=== PATIENT | male | born 1985 | race Caucasian/White ===

== ENCOUNTER 2016-12-30 18:50 | Emergency (ER) ==
[2016-12-30 19:01] VITALS: BP 134/93; TEMP 98.1; BMI 32.8
--- NOTE | 2016-12-30 20:11 | ED.PDOC ---
General ED Provider: Dr. 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 Time Seen by Physician: 20:07 Mode of Arrival: Walk-In Information Source: Patient Exam Limitations: No limitations Primary Care Provider: IGNACIO ARRINGTON Nursing and Triage Documentation Reviewed and Agree: Yes Review of Systems - Review Of Systems Constitutional: Reports: No symptoms Skin: Reports: Lesions, Lumps All Other Systems: Reviewed and Negative Past Medical History - Past Medical History Previously Healthy: Yes Endocrine: Reports: None Cardiovascular: Reports: None Respiratory: Reports: None Hematological: Reports: None Gastrointestinal: Reports: None Genitourinary: Reports: None Neuro/Psych: Reports: Bipolar Disorder, Other (add) Musculoskeletal: Reports: None Cancer: Reports: None - Surgical History General Surgical History: Reports: Unknown - Family History Family History: Reports: Unknown - Social History Smoking Status: Vaping Hx Substance Use: No Alcohol Screening: Occasionally - Immunizations Tetanus Shot up to Date: No Physical Exam - Physical Exam Appearance: Ill-appearing, Well-nourished Ill-appearing: Mild Pain Distress: Mild Eyes: TRUDY, EOMI, Conjunctiva clear ENT: Ears normal, Nose normal, Oropharynx normal Respiratory: Airway patent, Breath sounds clear, Breath sounds equal, Respirations nonlabored Cardiovascular: RRR, Pulses normal, No rub, No murmur GI/: Soft, Nontender, No masses, Bowel sounds normal, No Organomegaly Musculoskeletal: Normal strength, ROM intact, No edema, No calf tenderness Neurological: Sensation intact, Motor intact, Reflexes intact, Cranial nerves intact, Alert, Oriented Psychiatric: Anxious Procedures - Incision and Drainage Site: Left armpit Instrument Used: 11 Blade I & D Procedure: Yes: Betadine Prep, Hibiclens Prep Lidocaine Used: Yes (4% ) Type of Drainage: Present: Blood Irrigated: No Progress: Tolerated well Critical Care Note - Critical Care Note Total Time (mins): 0 Course - Course Orders, Labs, Meds: Orders Category Date Time Status CULTURE WOUND [WOUND CULTURE] Stat LAB 12/30/16 20:02 Results Lidocaine HCl/Pf [Lidocaine 1 % Amp 5 ml (Sutures)] MEDS 12/30/16 19:35 Discontinued 5 ml SQ ONCE STA Lidocaine HCl/Pf [Lidocaine HCl 4% 5 ml Amp] MEDS 12/30/16 20:18 Discontinued 1 ml INJ ONCE STA Medications Discontinued Medications Generic Name Dose Route Start Last Admin Trade Name Cyndee PRN Reason Stop Dose Admin Lidocaine HCl 5 ml 12/30/16 19:35 12/30/16 20:15 Lidocaine 1 % Amp 5 Ml (Sutures) SQ 12/30/16 19:36 Not Given ONCE STA Lidocaine HCl 1 ml 12/30/16 20:18 12/30/16 20:20 Lidocaine Hcl 4% 5 Ml Amp INJ 12/30/16 20:19 1 ml ONCE STA Administration Vital Signs: Temp Pulse Resp BP Pulse Ox 12/30/16 18:51 98.1 F 101 H 16 134/93 H 97 Departure - Departure Time of Disposition: 20:07 Disposition: HOME SELF-CARE Discharge Problem: Abscess Instructions: Abscess (ED) Condition: Fair Pt referred to PMD for follow-up: Yes Additional Instructions: Take antibiotics as prescribed Take pain medications as needed Follow up with PCP in 3 days Prescriptions: Clindamycin HCl [Cleocin] 150 mg PO Q6HR #30 cap Hydrocodone Bit/Acetaminophen [[place] 7.5-325] 1 each PO Q6HR #14 tablet Ibuprofen [Motrin] 600 mg PO Q6H PRN #30 tablet PRN Reason: Analgesia Allergies/Adverse Reactions: Allergies sulfamethoxazole [From Bactrim] Adverse Reaction (Verified 12/30/16 18:58) trimethoprim [From Bactrim] Adverse Reaction (Verified 12/30/16 18:58) Home Medications: Ambulatory Orders Lamotrigine [Lamictal] 200 mg PO DAILY 04/18/16 Lisdexamfetamine Dimesylate [Vyvanse] 60 mg PO DAILY 08/03/16 Hydrocodone/Acetaminophen [[place] 5-325 Tablet] 1 each PO DIRECTED PRN Clindamycin HCl [Cleocin] 150 mg PO Q6HR #30 cap 12/30/16 Cyclobenzaprine HCl [Flexeril] 5 mg PO TID 12/30/16 Gabapentin 100 mg PO BID 12/30/16 Gabapentin 300 mg PO DAILY 12/30/16 Hydrocodone Bit/Acetaminophen [[place] 7.5-325] 1 each PO Q6HR #14 tablet Ibuprofen [Motrin] 600 mg PO Q6H PRN #30 tablet 12/30/16 Disposition Discussed With: Patient, Family
[2016-12-30] MEDS: LIDOCAINE 1 % AMP 5 ML (SUTURES) SQ STA (20:15)
[2016-12-30] MEDS: LIDOCAINE HCL 4% 5 ML AMP INJ STA (20:20)
== END 2016-12-30 20:30 | disposition home or self-care (01) ==
LOC: ED 18:50
DX: L02.412 Cutaneous abscess of left axilla (principal)
CPT/HCPCS: 87070; 96372; 99283

== ENCOUNTER 2017-01-28 17:50 | Emergency (ER) ==
[2017-01-28 17:55] VITALS: BP 125/84; TEMP 100; BMI 33.6
--- NOTE | 2017-01-28 18:15 | ED.PDOC ---
General ED Provider: Dr. CHARMAINE AYALA Chief Complaint: Sore Throat Stated Complaint: sore throat , body aches Time Seen by Physician: 18:00 Mode of Arrival: Walk-In Information Source: Patient Exam Limitations: No limitations Primary Care Provider: IGNACIO ARRINGTON Nursing and Triage Documentation Reviewed and Agree: Yes EENT Complaint Exam - Throat Complaint/Exam Symptoms Are: Still present Timimg: Constant Initial Severity: Moderate Current Severity: Moderate Aggravating: Reports: None Alleviating: Reports: None Associated Signs and Symptoms: Reports: Cough. Denies: Fever, Dysphagia, Drooling, Foreign body sensation, Chills, Wheezing, Hoarseness, Sinus discomfort , Nasal congestion, Difficulty breathing, Lethargy, Irritability, Decreased activity, Vomiting, Diarrhea, Decreased hearing, Ear drainage Related History: Reports: Similar Episode Uvula Midline: Yes Rachell-tonsillar Fluctuence: No Scarlatinaform Rash Present: No Stridor Present: No Sinus Tenderness Present: No Tonsillar Hypertrophy Present: No Tonsillar Exudate Present: Yes Rachell-tonsillar Swelling Present: No Adenopathy Present: No Splenomegaly Present: No Review of Systems - Review Of Systems Constitutional: Reports: No symptoms Eyes: Reports: No symptoms Ears, Nose, Mouth, Throat: Reports: Throat pain Respiratory: Reports: No symptoms Cardiac: Reports: No symptoms GI: Reports: No symptoms : Reports: No symptoms Musculoskeletal: Reports: No symptoms Skin: Reports: No symptoms Neurological: Reports: No symptoms Endocrine: Reports: No symptoms Hematologic/Lymphatic: Reports: No symptoms All Other Systems: Reviewed and Negative Past Medical History - Past Medical History Previously Healthy: Yes Endocrine: Reports: None Cardiovascular: Reports: None Respiratory: Reports: None Hematological: Reports: None Gastrointestinal: Reports: None Genitourinary: Reports: None Neuro/Psych: Reports: Bipolar Disorder, Other (add) Musculoskeletal: Reports: None Cancer: Reports: None - Surgical History General Surgical History: Reports: Unknown - Family History Family History: Reports: Unknown - Social History Smoking Status: Never smoker Hx Substance Use: No Alcohol Screening: None - Immunizations Tetanus Shot up to Date: Yes Physical Exam - Physical Exam Appearance: Well-appearing, No pain distress, Well-nourished Eyes: TRUDY, EOMI, Conjunctiva clear ENT: Erythema, Exudate Respiratory: Airway patent, Breath sounds clear, Breath sounds equal, Respirations nonlabored Cardiovascular: RRR, Pulses normal, No rub, No murmur GI/: Soft, Nontender, No masses, Bowel sounds normal, No Organomegaly Musculoskeletal: Normal strength, ROM intact, No edema, No calf tenderness Skin: Warm, Dry, Normal color Neurological: Sensation intact, Motor intact, Reflexes intact, Cranial nerves intact, Alert, Oriented Psychiatric: Affect appropriate, Mood appropriate Critical Care Note - Critical Care Note Total Time (mins): 0 Course - Course Orders, Labs, Meds: Orders Category Date Time Status RAPID FLU A/B Stat LAB 01/28/17 18:00 Ordered RAPID STREP SCREEN [STREP SCREEN] Stat LAB 01/28/17 18:00 Ordered Vital Signs: Temp Pulse Resp BP Pulse Ox 01/28/17 17:51 100 F H 92 H 24 125/84 98 Departure - Departure Time of Disposition: 18:15 Disposition: HOME SELF-CARE Discharge Problem: Sore throat symptom Instructions: Viral Syndrome (ED), Pharyngitis (ED) Condition: Good Pt referred to PMD for follow-up: No Additional Instructions: Please call your Family Physician as soon as possible to schedule a follow-up appointment. Allergies/Adverse Reactions: Allergies sulfamethoxazole [From Bactrim] Adverse Reaction (Verified 12/30/16 18:58) trimethoprim [From Bactrim] Adverse Reaction (Verified 12/30/16 18:58) Home Medications: Ambulatory Orders Lamotrigine [Lamictal] 200 mg PO DAILY 04/18/16 Lisdexamfetamine Dimesylate [Vyvanse] 60 mg PO DAILY 08/03/16 Hydrocodone/Acetaminophen [[place] 5-325 Tablet] 1 each PO DIRECTED PRN Clindamycin HCl [Cleocin] 150 mg PO Q6HR #30 cap 12/30/16 Cyclobenzaprine HCl [Flexeril] 5 mg PO TID 12/30/16 Gabapentin 100 mg PO BID 12/30/16 Gabapentin 300 mg PO DAILY 12/30/16 Hydrocodone Bit/Acetaminophen [[place] 7.5-325] 1 each PO Q6HR #14 tablet Ibuprofen [Motrin] 600 mg PO Q6H PRN #30 tablet 12/30/16
[2017-01-28 18:42] LABS: FLU INTERNAL QC INTERNAL QC VALID; RAPID FLU A NEGATIVE (NEGATIVE); RAPID FLU B NEGATIVE (NEGATIVE)
== END 2017-01-28 18:32 | disposition home or self-care (01) ==
LOC: ED 17:50
DX: J02.9 Acute pharyngitis, unspecified (principal)
CPT/HCPCS: 87651; 87804; 87880; 99283

== ENCOUNTER 2017-02-15 12:34 | Outpatient (CLI) ==
--- NOTE | 2017-02-15 12:58 | DI ---
EXAM: Lumbar spine three view HISTORY: Low back pain, post coflex COMPARISON: CT 08/22/2016 TECHNIQUE: Three views lumbar spine were performed FINDINGS: Sacroiliac joints intact. Sacral arcuate lines intact. Vertebral bodies normal height. No fracture. Patient status post Coflex L5-S1. Mild intervertebral disc space narrowing L5-S1. M ultilevel facet arthrosis. IMPRESSION: Status postCoflex L5-L1. Mild degenerative changes.
--- NOTE | 2017-02-16 11:06 | RS.OPPTDN ---
Subjective Date of Note: 02/16/17 Visit #: 4 Date of Evaluation: 02/08/17 Payer Source: Medicaid Treatment Diagnosis: LBP, LE weakness Current Subjective/complaints:: Patient reports increased soreness in lowback and LE after increasing exercise last session. States he feels like he progressing. Pain Assessment - Pain Description Pain Location: low back, buttock, and thighs (left LE worse than right) Current Pain Intensity: 6-7/10 today Interventions - Exercise/Activities/Manual Therapy Exercises/Activities: [id number] Reviewed HEP, dx, body mechanics, and safety precautions. Assisted with hamstring and SKTC stretching. Pelvic tilts and isometric hip adduction. Increased to 4# to each ankle for alt hip flexion, 3s/ 10reps. Increased to green theraband for hip abd in hook-lying, 2s/10reps each. Isometric hip flexion 4s/5reps each. SLR no assist today, 4s/5reps each. Began green theraband for ham curls and resistive ankle df. Ended with additional LE stretching. Witheld cable pulleys and leg press today. Total minutes of Exercise: 40mins Manual Therapy: NA HOME EXERCISE PROGRAM: Pelvic tilt, heel slides, alt hip flexion, isometric hip add and flexion. Yellow theraband hip abd in hook-lying. Red theraband for scap retraction for postural strengthening. - Charges Total Direct Minutes: 40mins Total Treatment Time: 40mins Procedures billed for this date of service:: EX3 Assessment: Patient with some increased soreness but is able to progress LE and trunk strengthening exercises today. Patient Education: Home Exercise Program, Home Safety, Activity Modification Patient demonstrates compliance with HEP?: Yes Short Term Goals Goal #1: Patient independent and compliant with HEP. Goal to be met by: 02/23/17 Progress towards Goal:: Progressing Goal #2: Bilateral hip strength 4+/5. Goal to be met by: 02/23/17 Progress towards Goal:: Progressing Goal #3: Pt to report pain in low back and LE's <5/10. Goal to be met by: 02/23/17 Progress towards Goal:: Progressing Goal #4: Bilateral SLR to 45 degrees. Goal to be met by: 02/23/17 Progress towards Goal:: Progressing [facility] Goals Goal #1: Pt knows HEP and to continue ex's to maintain functional level at discharge Goal to be met by: 03/21/17 Goal #2: Score on Oswestry LBP scale improved to 24. Goal to be met by: 03/21/17 Goal #3: Pt to demonstrate good awareness of back safety and proper body mechanics. Goal to be met by: 03/21/17 Goal #4: Pt able to perform all ADL's and functional activities with minimal pain. Goal to be met by: 03/21/17 Plan PLAN OF CARE EXPIRES ON:: 03/21/17 ORDER # VISITS AND/OR THROUGH DATE: 03/21/17 PLAN: Continue Plan of Care
== END 2017-02-15 12:35 | disposition home or self-care (01) ==
LOC: RAD 12:34
PROVIDERS: ATTEND Orthopaedic Surgery
DX: M54.5 Low back pain (principal); Z98.890 Other specified postprocedural states

== ENCOUNTER 2017-02-18 10:00 | Outpatient (RCR) ==
--- NOTE | 2017-02-09 11:50 | RS.OPPTEV2 ---
Date of Note: 02/08/17 Visit #: 1 Date of Evaluation: 02/08/17 Payer Source: Medicaid Surgery Performed?: Yes Procedure Performed: Lumbar discectomy Date of Procedure: 01/18/17 Treatment Diagnosis: LBP, LE weakness History of Condition/Mechanism of Injury:: Patient reports problems with his low back since 2003. States he had received 24 injections to the low back for pain management. States he is very glad that he found a surgeon who went ahead and performed surgery rather than keep him on pain medications. Prior Level of Function.....Patient was independent with: ADL's, Self Care, Work /Vocation, Caregiving, Ambulation/Mobility, Community Integration/Access Functional Limitations: Sleep, Self Care, ADL's, Reaching, Pushing, Pulling, Lifting, Carrying, Sitting, Standing, Bending, Squatting, Ambulation, Community Access/Integration Current Subjective/complaints:: Patient reports back pain is less since surgery , but he continues to have pain into the thighs and buttocks. Reports more pain into the left thigh, compared to the right. States he has no pain passed the knees. Denies any tingling or numbness. States he has a back support that he wears daily. States he did not wear it to the evaluation because he thought he would be moving around a lot. States he is on a 10 lb. lifting restriction. States he wakes up often due to back and LE discomfort. 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 States sitting bothers him when he sits too long. States he scoots his hips out and sticks out his left leg in a chair to get relief. Medical History Medical History Comments:: ADHD Surgical History Comments:: Lumbar discectomy 01/18/17 Hx Home Medications: [place], gabepentin, flexeril, meloxicam,Vyvanse,lamictal Patient's Goals: His goal is to get relief of pain and return to his prior level of function. Pain Assessment - Pain Description Pain Location: low back, buttock, and thighs (left LE worse than right) Pain Description: Aching Current Pain Intensity: 7/10 Worst Pain Intensity: 10/10 Functional Outcome Measure Oswestry LBP: 54 - G Codes & Severity Modifier G Codes & Modifier: NA Source of G Code score: NA Observation - Observation Inspection: Patient demonstrates a clean, well-healing incision over the lower lumbar spine. Posture: Forward Head, Rounded Shoulders Gait - Gait Pattern Gait Comments: Patient ambulates independently without an assistive device, and without an antalgic gait. He demonstrates consistent foot clearance and symmetrical stride length. - ROM Comments: Lumbar AROM not assessed today due to proximity of surgery date. Bilateral LE AROM is WFL's. - Strength Trunk Rotation: 4- Good- Comments: Hip strength: right 4 to 4+/5, left 4-/5. Knee strength: bilaterally 4/5. Ankle strength: bilaterally 4+/5. Palpation Comments:: Patient reports minimal to no tenderness along the lumbar paraspinals. Demonstrates moderate muscle tone along the lumbar parapspinals. Sensation - Sensation Right Lower Extremity: Intact/Normal Left Lower Extremity: Intact/Normal Additional Comments: Additional Comments: Attempt to assess HS flexibility, patient unable to tolerate SLR on either leg past 30 degrees due to reports of back pain. Interventions - Exercise/Activities/Manual Therapy Exercises/Activities: Patient instructed in HEP of heel slides, pelvic tilts, and isometric hip adduction. Patient on treadmill to determine his tolerance for walking. Patient turns treadmill up to 3.0 mph then starts performing extreme hip flexion. "States people tell me I drag my feet, so I do this to practice picking up my feet". Explained to patient that it was not necessary for him to walk at that speed or in that manner, but he continued to do so. Patient supported himself with his UE's on treadmill while taking large steps and continuing to perform excessive hip flexion. Manual Therapy: NA - Charges Total Direct Minutes: 48 mins Total Treatment Time: 48 mins Procedures billed for this date of service:: EVAL medium X 3 Assessment Assessment: Patient presents 3 weeks s/p lumbar discectomy. He reports continued back, buttock, and lateral thigh pain. Also exhibits weakness in both LE's and trunk. He is quick to voluntarily demonstrate movements and positions during the evaluation, including the behavior he exhibited on the treadmill, even after verbal cues were given for safety. He demonstrates a great need for education for safety to prevent injury and to properly perform exercises. He demonstrates potential to benefit from modalities, stretching, strengthening, and back safety education to decrease his symptoms and improve his functional ability. Patient Education: Education of diagnosis, Body/Joint mechanics, Home Exercise Program, Activity Modification, Education of Plan of Care Rehab Potential: Good Short Term Goals Goal #1: Patient independent and compliant with HEP. Goal to be met by: 02/23/17 Goal #2: Bilateral hip strength 4+/5. Goal to be met by: 02/23/17 Goal #3: Pt to report pain in low back and LE's <5/10. Goal to be met by: 02/23/17 Goal #4: Bilateral SLR to 45 degrees. Goal to be met by: 02/23/17 Snf Goals Goal #1: Pt knows HEP and to continue ex's to maintain functional level at discharge Goal to be met by: 03/21/17 Goal #2: Score on Oswestry LBP scale improved to 24. Goal to be met by: 03/21/17 Goal #3: Pt to demonstrate good awareness of back safety and proper body mechanics. Goal to be met by: 03/21/17 Goal #4: Pt able to perform all ADL's and functional activities with minimal pain. Goal to be met by: 03/21/17 Plan - Treatment to be Provided Procedures: Therapeutic Exercises, Therapeutic Activity, Neuromuscular Rehab, Patient Education (Back Safety) Modalities: Electrical Stimulation, Ultrasound/Phonophoresis, Cryotherapy, Hot Packs - Treatment Plan Frequency: 3 X week Duration: 4 weeks ORDER # VISITS AND/OR THROUGH DATE: 03/21/17 - Treatment Code (1) Low back pain Qualifiers: Chronicity: acute Back pain laterality: bilateral Sciatica presence : unspecified whether sciatica present Qualified Description: Acute bilateral low back pain, with sciatica presence unspecified Qualifier Code (s): (M54.5) Low back pain (2) Low back pain radiating to both legs Comments: M54.5 (3) Muscle weakness Comments: LE and trunk weakness M62.81 (4) S/P lumbar discectomy Comments: Z98.890
--- NOTE | 2017-02-10 12:07 | RS.OPPTDN ---
Subjective Date of Note: 02/10/17 Visit #: 2 Date of Evaluation: 02/08/17 Payer Source: Medicaid Treatment Diagnosis: LBP, LE weakness Current Subjective/complaints:: Patient reports pain is mainly in the lumbar spine today. Denies buttock, lateral hip, or LE pain today. Reports he feels well following exercise with no increase in pain rating. Pain Assessment - Pain Description Pain Location: low back, buttock, and thighs (left LE worse than right) Pain Description: Aching Current Pain Intensity: 6/10 prior to and following EX Interventions - Exercise/Activities/Manual Therapy Exercises/Activities: [id number] Discussed current HEP, dx, body mechanics, and safety precautions. ssisted with hamstring and SKTC stretching. Pelvic tilts, heel slides, and isometric hip adduction. Alt hip flexion and yellow theraband for hip abd in hook-lying, 2s/10reps each. Isometric hip flexion 4s/5reps each. Assisted with SLR, 2s/5reps each. Patient on treadmill 2.5mph x2mins, v.c. to hold handrails for safety. In standing, cable pulleys 10# for scapular retraction 2s/10reps for postural strengthening. Red theraband for scapular retraction, 2s/10reps. Reviewed HEP and patient given copies and therabands. Total minutes of Exercise: 40mins Manual Therapy: NA HOME EXERCISE PROGRAM: Pelvic tilt, heel slides, alt hip flexion, isometric hip add and flexion. Yellow theraband hip abd in hook-lying. Red theraband for scap retraction for postural strengthening. - Charges Total Direct Minutes: 40mins Total Treatment Time: 45mins Procedures billed for this date of service:: EX3 Assessment: Patient responded well to exercise and appears motivated to progress. Patient Education: Education of diagnosis, Body/Joint mechanics, Home Exercise Program, Home Safety, Activity Modification Patient demonstrates compliance with HEP?: Yes Short Term Goals Goal #1: Patient independent and compliant with HEP. Goal to be met by: 02/23/17 Progress towards Goal:: Progressing Goal #2: Bilateral hip strength 4+/5. Goal to be met by: 02/23/17 Goal #3: Pt to report pain in low back and LE's <5/10. Goal to be met by: 02/23/17 Progress towards Goal:: Progressing Goal #4: Bilateral SLR to 45 degrees. 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 Goal to be met by: 03/21/17 Goal #3: Pt to demonstrate good awareness of back safety and proper body mechanics. Goal to be met by: 03/21/17 Goal #4: Pt able to perform all ADL's and functional activities with minimal pain. Goal to be met by: 03/21/17 Plan PLAN OF CARE EXPIRES ON:: 03/21/17 ORDER # VISITS AND/OR THROUGH DATE: 03/21/17 PLAN: Continue Plan of Care (Progress with flexibility and stability exercise to reduce pain and increase functional activity level.)
--- NOTE | 2017-02-14 11:07 | RS.OPPTDN ---
Subjective Date of Note: 02/14/17 Visit #: 3 Date of Evaluation: 02/08/17 Payer Source: Medicaid Treatment Diagnosis: LBP, LE weakness Current Subjective/complaints:: Patient reports some increased muscle soreness in the buttocks, but no increase in back pain. States he has some increased pain in the right foot since using a yoga belt for stretching hamstrings. Pain Assessment - Pain Description Pain Location: low back, buttock, and thighs (left LE worse than right) Pain Description: Aching Current Pain Intensity: 6/10 prior to and following EX Interventions - Exercise/Activities/Manual Therapy Exercises/Activities: [id number] Discussed current HEP, dx, body mechanics, and safety precautions. Assisted with hamstring and SKTC stretching. Pelvic tilts, heel slides, and isometric hip adduction. Added 3# to each ankle for alt hip flexion, 2s/10reps. Increased to red theraband for hip abd in hook-lying, 2s/ 10reps each. Isometric hip flexion 4s/5reps each. Assisted with SLR, 2s/10reps each. Started on elliptical slow to mod pace 2mins. In standing, cable pulleys 20# for scapular retraction 4s/10reps for postural strengthening. Began leg press at 105# 2s/15reps and 1s/15reps at 150#, with lumbar spine supported. Total minutes of Exercise: 45mins Manual Therapy: NA HOME EXERCISE PROGRAM: Pelvic tilt, heel slides, alt hip flexion, isometric hip add and flexion. Yellow theraband hip abd in hook-lying. Red theraband for scap retraction for postural strengthening. - Charges Total Direct Minutes: 45mins Total Treatment Time: 45mins Procedures billed for this date of service:: EX3 Assessment: Patient progressing with strengtheing exericse. Patient Education: Body/Joint mechanics, Home Exercise Program Patient demonstrates compliance with HEP?: Yes Short Term Goals Goal #1: Patient independent and compliant with HEP. Goal to be met by: 02/23/17 Progress towards Goal:: Progressing Goal #2: Bilateral hip strength 4+/5. Goal to be met by: 02/23/17 Progress towards Goal:: Progressing Goal #3: Pt to report pain in low back and LE's <5/10. Goal to be met by: 02/23/17 Progress towards Goal:: Progressing Goal #4: Bilateral SLR to 45 degrees. 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 Goal to be met by: 03/21/17 Goal #3: Pt to demonstrate good awareness of back safety and proper body mechanics. Goal to be met by: 03/21/17 Goal #4: Pt able to perform all ADL's and functional activities with minimal pain. Goal to be met by: 03/21/17 Plan PLAN OF CARE EXPIRES ON:: 03/21/17 ORDER # VISITS AND/OR THROUGH DATE: 03/21/17 PLAN: Continue Plan of Care
--- NOTE | 2017-02-18 10:56 | RS.OPPTDN ---
Subjective Date of Note: 02/16/17 Visit #: 4 Date of Evaluation: 02/08/17 Payer Source: Medicaid Treatment Diagnosis: LBP, LE weakness Current Subjective/complaints:: Patient reports soreness lowback, but no pain in LE's. States he is working on HEP. Pain Assessment - Pain Description Pain Location: low back, buttock, and thighs (left LE worse than right) Pain Description: Aching Current Pain Intensity: 6/10 today Interventions - Exercise/Activities/Manual Therapy Exercises/Activities: [id number] Reviewed HEP, dx, body mechanics, and safety precautions. Assisted with hamstring and SKTC stretching. Pelvic tilts and isometric hip adduction. Increased to 4# to each ankle for alt hip flexion, 3s/ 10reps. Increased to green theraband for hip abd in hook-lying, 2s/10reps each. Isometric hip flexion 4s/5reps each. SLR no assist today, 4s/5reps each. Began green theraband for ham curls and resistive ankle df. Ended with additional LE stretching. Witheld cable pulleys and leg press today. Total minutes of Exercise: 40mins Manual Therapy: NA HOME EXERCISE PROGRAM: Pelvic tilt, heel slides, alt hip flexion, isometric hip add and flexion. Yellow theraband hip abd in hook-lying. Red theraband for scap retraction for postural strengthening. - Charges Total Direct Minutes: 40mins Total Treatment Time: 45mins Procedures billed for this date of service:: EX3 Assessment: Patient progressing with strengthening. Patient Education: Body/Joint mechanics, Home Exercise Program Patient demonstrates compliance with HEP?: Yes Short Term Goals Goal #1: Patient independent and compliant with HEP. Goal to be met by: 02/23/17 Progress towards Goal:: Progressing Goal #2: Bilateral hip strength 4+/5. Goal to be met by: 02/23/17 Progress towards Goal:: Progressing Goal #3: Pt to report pain in low back and LE's <5/10. Goal to be met by: 02/23/17 Progress towards Goal:: Progressing Goal #4: Bilateral SLR to 45 degrees. Goal to be met by: 02/23/17 Progress towards Goal:: Progressing [facility] Goals Goal #1: Pt knows HEP and to continue ex's to maintain functional level at discharge Goal to be met by: 03/21/17 Goal #2: Score on Oswestry LBP scale improved to 24. Goal to be met by: 03/21/17 Goal #3: Pt to demonstrate good awareness of back safety and proper body mechanics. Goal to be met by: 03/21/17 Goal #4: Pt able to perform all ADL's and functional activities with minimal pain. Goal to be met by: 03/21/17 Plan PLAN OF CARE EXPIRES ON:: 03/21/17 ORDER # VISITS AND/OR THROUGH DATE: 03/21/17 PLAN: Continue Plan of Care
--- NOTE | 2017-02-18 11:02 | RS.OPPTDN ---
Subjective Date of Note: 02/18/17 Visit #: 5 Date of Evaluation: 02/08/17 Payer Source: Medicaid Treatment Diagnosis: LBP, LE weakness Current Subjective/complaints:: Patient reports continued progress with HEP. Reports soreness lowback, but no increase in pain or LE symptoms. Pain Assessment - Pain Description Pain Location: low back, buttock, and thighs (left LE worse than right) Pain Description: Aching Current Pain Intensity: 6/10 today Interventions - Exercise/Activities/Manual Therapy Exercises/Activities: [id number] Reviewed HEP, dx, body mechanics, and safety precautions. Assisted with hamstring and SKTC stretching. Pelvic tilts, isometric hip adduction, and isometric trunk rotation. 4# to each ankle for alt hip flexion, 3s/10reps. Green theraband for hip abd in hook-lying, 2s/ 10reps each. Isometric hip flexion 4s/5reps each. Elliptical machine 4mins at mod pace. SLR 2s/10reps each. Multi-gym station scapular retraction 3s/10reps 30 #. Total minutes of Exercise: 45mins Manual Therapy: NA HOME EXERCISE PROGRAM: Pelvic tilt, heel slides, alt hip flexion, isometric hip add and flexion. Yellow theraband hip abd in hook-lying. Red theraband for scap retraction for postural strengthening. - Charges Total Direct Minutes: 45mins Total Treatment Time: 45mins Procedures billed for this date of service:: EX3 Assessment: Patient progressing with strengthening and with daily activities. Patient Education: Home Exercise Program, Home Safety Patient demonstrates compliance with HEP?: Yes Short Term Goals Goal #1: Patient independent and compliant with HEP. Goal to be met by: 02/23/17 Progress towards Goal:: Progressing Goal #2: Bilateral hip strength 4+/5. Goal to be met by: 02/23/17 Progress towards Goal:: Progressing Goal #3: Pt to report pain in low back and LE's <5/10. Goal to be met by: 02/23/17 Progress towards Goal:: Progressing Goal #4: Bilateral SLR to 45 degrees. Goal to be met by: 02/23/17 Progress towards Goal:: Progressing [facility] Goals Goal #1: Pt knows HEP and to continue ex's to maintain functional level at discharge Goal to be met by: 03/21/17 Goal #2: Score on Oswestry LBP scale improved to 24. Goal to be met by: 03/21/17 Goal #3: Pt to demonstrate good awareness of back safety and proper body mechanics. Goal to be met by: 03/21/17 Progress towards goal: Progressing Goal #4: Pt able to perform all ADL's and functional activities with minimal pain. Goal to be met by: 03/21/17 Plan PLAN OF CARE EXPIRES ON:: 03/21/17 ORDER # VISITS AND/OR THROUGH DATE: 03/21/17 PLAN: Continue Plan of Care
== END 2017-02-20 ==
PROVIDERS: ATTEND Orthopaedic Surgery
DX: M54.5 Low back pain (principal); Z98.890 Other specified postprocedural states

== ENCOUNTER 2017-03-11 11:00 | Outpatient (RCR) ==
--- NOTE | 2017-02-23 16:12 | RS.OPPTDN ---
Subjective Date of Note: 02/23/17 Visit #: 6 Date of Evaluation: 02/08/17 Payer Source: Medicaid Treatment Diagnosis: LBP, LE weakness Current Subjective/complaints:: Patient reports continued soreness in lowback with increased walking or exercise. Pain Assessment - Pain Description Pain Location: low back, buttock, and thighs (left LE worse than right) Current Pain Intensity: 4/10 today Interventions - Exercise/Activities/Manual Therapy Exercises/Activities: [id number] Discussed HEP, dx, body mechanics, and safety precautions. Assisted with hamstring and SKTC stretching. Pelvic tilts, isometric hip adduction, isometric hip flexion, and isometric trunk rotation. 4 # to each ankle for alt hip flexion, 3s/10reps. SLR 2s/10reps. Green theraband for hip abd in hook-lying, 2s/10reps each. 3# wand for overhead flexion while performing isometric hip add in hook-lying (modified -bug). Elliptical machine 4mins at mod pace. Total minutes of Exercise: 40mins Manual Therapy: NA HOME EXERCISE PROGRAM: Pelvic tilt, heel slides, alt hip flexion, isometric hip add and flexion. Yellow theraband hip abd in hook-lying. Red theraband for scap retraction for postural strengthening. - Charges Total Direct Minutes: 40mins Total Treatment Time: 45mins Procedures billed for this date of service:: EX3 Assessment: Patient progressin gwith core strengthening and appears motivated to increase walking program. Patient Education: Home Exercise Program, Home Safety, Activity Modification Patient demonstrates compliance with HEP?: Yes Short Term Goals Goal #1: Patient independent and compliant with HEP. Goal to be met by: 02/23/17 Progress towards Goal:: Progressing Goal #2: Bilateral hip strength 4+/5. Goal to be met by: 02/23/17 Progress towards Goal:: Progressing Goal #3: Pt to report pain in low back and LE's <5/10. Goal to be met by: 02/23/17 Progress towards Goal:: Progressing Goal #4: Bilateral SLR to 45 degrees. Goal to be met by: 02/23/17 Progress towards Goal:: Progressing Intermediate Teacher Goals Goal #1: Pt knows HEP and to continue ex's to maintain functional level at discharge Goal to be met by: 03/21/17 Goal #2: Score on Oswestry LBP scale improved to 24. Goal to be met by: 03/21/17 Goal #3: Pt to demonstrate good awareness of back safety and proper body mechanics. Goal to be met by: 03/21/17 Progress towards goal: Progressing Goal #4: Pt able to perform all ADL's and functional activities with minimal pain. Goal to be met by: 03/21/17 Plan PLAN OF CARE EXPIRES ON:: 03/21/17 ORDER # VISITS AND/OR THROUGH DATE: 03/21/17 PLAN: Progress Exercises
--- NOTE | 2017-02-24 11:47 | RS.OPPTDN ---
Subjective Date of Note: 02/24/17 Visit #: 7 Date of Evaluation: 02/08/17 Payer Source: Medicaid Treatment Diagnosis: LBP, LE weakness Current Subjective/complaints:: Patient reports back pain is much better today. Report no increased pain following exercise including elliptical machine. Pain Assessment - Pain Description Pain Location: low back, buttock, and thighs (left LE worse than right) Current Pain Intensity: 4/10 - Heat/Cryotherapy Treatment: Cryotherapy ([id number] to lowback before and during EX. Patient in supine. ) Interventions - Exercise/Activities/Manual Therapy Exercises/Activities: [id number] Reveiwed HEP, dx, body mechanics, and safety precautions. Assisted with hamstring and SKTC stretching. Pelvic tilts, isometric hip adduction, isometric hip flexion, and isometric trunk rotation. 4 # to each ankle for alt hip flexion, 3s/10reps. SLR 2s/10reps. Green theraband for hip abd and hip add in hook-lying, 2s/10reps each. Increased to 5# wand for overhead flexion while performing isometric hip add in hook-lying (modified -bug). Began bodyblade with bilateral UE's overhead(shoulders at 90 degrees flex ) 3sets. Multi-gym for scap retraction 30# 3s/10reps. Elliptical machine 4mins at mod pace. Total minutes of Exercise: 45mins Manual Therapy: NA HOME EXERCISE PROGRAM: Pelvic tilt, heel slides, alt hip flexion, isometric hip add and flexion. Yellow theraband hip abd in hook-lying. Red theraband for scap retraction for postural strengthening. - Charges Total Direct Minutes: 45mins Total Treatment Time: 55mins Procedures billed for this date of service:: CP, EX3 Assessment: Patient progressing with strengthening exercise without increased pain today. Patient responded well to CP. Patient Education: Body/Joint mechanics, Home Exercise Program Patient demonstrates compliance with HEP?: Yes Short Term Goals Goal #1: Patient independent and compliant with HEP. Goal to be met by: 02/23/17 (100%) Progress towards Goal:: Met Goal #2: Bilateral hip strength 4+/5. Goal to be met by: 02/23/17 (75%) Progress towards Goal:: Progressing Goal #3: Pt to report pain in low back and LE's <5/10. Goal to be met by: 02/23/17 (70%) Progress towards Goal:: Progressing Goal #4: Bilateral SLR to 45 degrees. Goal to be met by: 02/23/17 (80%) Progress towards Goal:: Progressing [facility] Program Coordinator Goals Goal #1: Pt knows HEP and to continue ex's to maintain functional level at discharge Goal to be met by: 03/21/17 Progress towards goal: Progressing Goal #2: Score on Oswestry LBP scale improved to 24. Goal to be met by: 03/21/17 Goal #3: Pt to demonstrate good awareness of back safety and proper body mechanics. Goal to be met by: 03/21/17 Progress towards goal: Progressing Goal #4: Pt able to perform all ADL's and functional activities with minimal pain. Goal to be met by: 03/21/17 Plan PLAN OF CARE EXPIRES ON:: 03/21/17 ORDER # VISITS AND/OR THROUGH DATE: 03/21/17 PLAN: Continue Plan of Care
--- NOTE | 2017-02-28 16:23 | RS.OPPTDN ---
Subjective Date of Note: 02/28/17 Visit #: 8 Date of Evaluation: 02/08/17 Payer Source: Medicaid Treatment Diagnosis: LBP, LE weakness Current Subjective/complaints:: Patient reports increased pain across the lumbar region and increased swelling around incision line. 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 Reports feeling better following modalities and gentle stretching. Pain Assessment - Pain Description Pain Location: low back, buttock, and thighs (left LE worse than right) Current Pain Intensity: mod+ - Treatment Modality: Electrical Stim Unattended Parameters/Method Applied: [id number] HVGC to 245p.v. with 4 large pads to the bilateral lumbar paraspinals with CP. Patient Position: Supine - Heat/Cryotherapy Treatment: Cryotherapy ([id number] with Estim) Interventions - Exercise/Activities/Manual Therapy Exercises/Activities: [id number] Assisted stretching of bilateral hamstrings, SKTC , piriformis. Isometric hip flexion. Total minutes of Exercise: 12mins Manual Therapy: NA HOME EXERCISE PROGRAM: Pelvic tilt, heel slides, alt hip flexion, isometric hip add and flexion. Yellow theraband hip abd in hook-lying. Red theraband for scap retraction for postural strengthening. - Charges Total Direct Minutes: 12mins Total Treatment Time: 32mins Procedures billed for this date of service:: CP, Estim unattended, EX Assessment: Patient with flair-up of pain with increased activity, but responds to modalities. Patient Education: Body/Joint mechanics, Home Exercise Program, Home Safety, Activity Modification Patient demonstrates compliance with HEP?: Yes Short Term Goals Goal #1: Patient independent and compliant with HEP. Goal to be met by: 02/23/17 (100%) Progress towards Goal:: Met Goal #2: Bilateral hip strength 4+/5. Goal to be met by: 02/23/17 (75%) Progress towards Goal:: Progressing Goal #3: Pt to report pain in low back and LE's <5/10. Goal to be met by: 02/23/17 (70%) Progress towards Goal:: Regressing Goal #4: Bilateral SLR to 45 degrees. Goal to be met by: 02/23/17 (80%) Progress towards Goal:: Progressing [facility] Goals Goal #1: Pt knows HEP and to continue ex's to maintain functional level at discharge Goal to be met by: 03/21/17 Progress towards goal: Progressing Goal #2: Score on Oswestry LBP scale improved to 24. Goal to be met by: 03/21/17 Goal #3: Pt to demonstrate good awareness of back safety and proper body mechanics. Goal to be met by: 03/21/17 Progress towards goal: Progressing Goal #4: Pt able to perform all ADL's and functional activities with minimal pain. Goal to be met by: 03/21/17 Plan PLAN OF CARE EXPIRES ON:: 03/21/17 ORDER # VISITS AND/OR THROUGH DATE: 03/21/17 PLAN: Continue Plan of Care (Continue modalities as needed and progress exercise as tolerated.)
--- NOTE | 2017-03-03 15:10 | RS.OPPTDN ---
Subjective Date of Note: 03/03/17 Visit #: 9 Date of Evaluation: 02/08/17 Payer Source: Medicaid Treatment Diagnosis: LBP, LE weakness Current Subjective/complaints:: Patient reports last treatment helped reduce pain and swelling at the lowback and along his incision line. Pain Assessment - Pain Description Pain Location: low back, buttock, and thighs (left LE worse than right) Current Pain Intensity: mild to mod - Treatment Modality: Electrical Stim Unattended Parameters/Method Applied: [id number] HVGC to 225p.v. with 4 large pads to the bilateral lumbar paraspinals, cross current, with CP prior to EX. Patient Position: Supine - Heat/Cryotherapy Treatment: Cryotherapy ([id number] with Estim ) Interventions - Exercise/Activities/Manual Therapy Exercises/Activities: [id number] Assisted stretching of bilateral hamstrings, SKTC , piriformis. Isometric hip flexion, isometric hip add, and SLR. Total minutes of Exercise: 14mins Manual Therapy: NA HOME EXERCISE PROGRAM: Pelvic tilt, heel slides, alt hip flexion, isometric hip add and flexion. Yellow theraband hip abd in hook-lying. Red theraband for scap retraction for postural strengthening. - Charges Total Direct Minutes: 14mins Total Treatment Time: 34mins Procedures billed for this date of service:: CP, Estim unattended, EX Assessment: Patient reports he has responded to modalities and is able to increase exercise again today. Will need to progress back to more trunk strengthening exercises. Patient Education: Home Exercise Program Patient demonstrates compliance with HEP?: Yes Short Term Goals Goal #1: Patient independent and compliant with HEP. Goal to be met by: 02/23/17 (100%) Progress towards Goal:: Met Goal #2: Bilateral hip strength 4+/5. Goal to be met by: 02/23/17 (75%) Progress towards Goal:: Progressing Goal #3: Pt to report pain in low back and LE's <5/10. Goal to be met by: 02/23/17 (70%) Progress towards Goal:: Regressing Goal #4: Bilateral SLR to 45 degrees. Goal to be met by: 02/23/17 (80%) Progress towards Goal:: Progressing Battery Tester Goals Goal #1: Pt knows HEP and to continue ex's to maintain functional level at discharge Goal to be met by: 03/21/17 Progress towards goal: Progressing Goal #2: Score on Oswestry LBP scale improved to 24. Goal to be met by: 03/21/17 Goal #3: Pt to demonstrate good awareness of back safety and proper body mechanics. Goal to be met by: 03/21/17 Progress towards goal: Progressing Goal #4: Pt able to perform all ADL's and functional activities with minimal pain. Goal to be met by: 03/21/17 Plan PLAN OF CARE EXPIRES ON:: 03/21/17 ORDER # VISITS AND/OR THROUGH DATE: 03/21/17 PLAN: Continue Plan of Care
--- NOTE | 2017-03-04 14:01 | RS.OPPTDN ---
Subjective Date of Note: 03/04/17 Visit #: 10 Date of Evaluation: 02/08/17 Payer Source: Medicaid Treatment Diagnosis: LBP, LE weakness Current Subjective/complaints:: Patient reports feeling much better today. Pain Assessment - Pain Description Pain Location: low back, buttock, and thighs (left LE worse than right) Current Pain Intensity: 3/10 following treatment and exercise. - Treatment Modality: Electrical Stim Unattended Parameters/Method Applied: [id number] HVGC to 265p.v. with 4 large pads to the bilateral lumbar paraspinals with HP prior to EX. Patient Position: Supine - Heat/Cryotherapy Treatment: Hot Pack ([id number] with Estim) Interventions - Exercise/Activities/Manual Therapy Exercises/Activities: [id number] Assisted stretching of bilateral hamstrings, SKTC , piriformis. Isometric hip flexion, isometric hip add, and SLR. Elliptical machine x3mins. Cable pulleys for scapular retraction 20# 2s/10reps. Total minutes of Exercise: 20mins Manual Therapy: NA HOME EXERCISE PROGRAM: Pelvic tilt, heel slides, alt hip flexion, isometric hip add and flexion. Yellow theraband hip abd in hook-lying. Red theraband for scap retraction for postural strengthening. - Charges Total Direct Minutes: 20mins Total Treatment Time: 40mins Procedures billed for this date of service:: HP, Estim unattended, EX Assessment: Patient responding to modalities and resuming strengthening exercise. Patient Education: Home Exercise Program Patient demonstrates compliance with HEP?: Yes Short Term Goals Goal #1: Patient independent and compliant with HEP. Goal to be met by: 02/23/17 (100%) Progress towards Goal:: Met Goal #2: Bilateral hip strength 4+/5. Goal to be met by: 02/23/17 (75%) Progress towards Goal:: Progressing Goal #3: Pt to report pain in low back and LE's <5/10. Goal to be met by: 02/23/17 (100%) Progress towards Goal:: Met Comments:: 3/10 today Goal #4: Bilateral SLR to 45 degrees. Goal to be met by: 02/23/17 (80%) Progress towards Goal:: Progressing [facility] Care Goals Goal #1: Pt knows HEP and to continue ex's to maintain functional level at discharge Goal to be met by: 03/21/17 Progress towards goal: Progressing Goal #2: Score on Oswestry LBP scale improved to 24. Goal to be met by: 03/21/17 Goal #3: Pt to demonstrate good awareness of back safety and proper body mechanics. Goal to be met by: 03/21/17 Progress towards goal: Progressing Goal #4: Pt able to perform all ADL's and functional activities with minimal pain. Goal to be met by: 03/21/17 Plan PLAN OF CARE EXPIRES ON:: 03/21/17 ORDER # VISITS AND/OR THROUGH DATE: 03/21/17 PLAN: Continue Plan of Care
--- NOTE | 2017-03-09 15:44 | RS.OPPTDN ---
Subjective Date of Note: 03/09/17 Visit #: 11 Date of Evaluation: 02/08/17 Payer Source: Medicaid Treatment Diagnosis: LBP, LE weakness Current Subjective/complaints:: Patient reports an increase in pain again today after increased activitiy at home, including sweeping the floors. Pain Assessment - Pain Description Pain Location: low back, buttock, and thighs (left LE worse than right) Current Pain Intensity: 3/10 following treatment and exercise. - Treatment Modality: Electrical Stim Unattended Parameters/Method Applied: [id number] HVGC to 225p.v. with 4 large pads to the bilaterla lumbar paraspinals with CP following EX. Patient Position: Supine - Heat/Cryotherapy Treatment: Cryotherapy ([id number] with Estim ) Interventions - Exercise/Activities/Manual Therapy Exercises/Activities: [id number] Isometric hip flexion, isometric hip add. SLR 2s/ 10reps. Double LE with ball between knees for core strengthening, 2s/5reps. Elliptical machine x3mins. Cable pulleys for scapular retraction 20# 2s/10reps. Assisted stretching of bilateral hamstrings and SKTC. Total minutes of Exercise: 25mins Manual Therapy: NA HOME EXERCISE PROGRAM: Pelvic tilt, heel slides, alt hip flexion, isometric hip add and flexion. Yellow theraband hip abd in hook-lying. Red theraband for scap retraction for postural strengthening. - Charges Total Direct Minutes: 25mins Total Treatment Time: 45mins Procedures billed for this date of service:: EX2, CP, Estim unattended Assessment: Patient progressing with trunk strengthening exercise, but will need to reduce activities at home that aggravate pain. Patient Education: Education of diagnosis, Body/Joint mechanics, Home Exercise Program, Home Safety, Activity Modification Comments: Advised patient to avoid sweeping due to stress on lumbar spine with repetative rotational movement. Patient demonstrates compliance with HEP?: Yes Short Term Goals Goal #1: Patient independent and compliant with HEP. Goal to be met by: 02/23/17 (100%) Progress towards Goal:: Met Goal #2: Bilateral hip strength 4+/5. Goal to be met by: 02/23/17 (75%) Progress towards Goal:: Progressing Goal #3: Pt to report pain in low back and LE's <5/10. Goal to be met by: 02/23/17 (100%) Progress towards Goal:: Met Goal #4: Bilateral SLR to 45 degrees. Goal to be met by: 02/23/17 (80%) Progress towards Goal:: Progressing Cna Per Diem Goals Goal #1: Pt knows HEP and to continue ex's to maintain functional level at discharge Goal to be met by: 03/21/17 Progress towards goal: Progressing Goal #2: Score on Oswestry LBP scale improved to 24. Goal to be met by: 03/21/17 Goal #3: Pt to demonstrate good awareness of back safety and proper body mechanics. Goal to be met by: 03/21/17 Progress towards goal: Progressing Goal #4: Pt able to perform all ADL's and functional activities with minimal pain. Goal to be met by: 03/21/17 Plan PLAN OF CARE EXPIRES ON:: 03/21/17 ORDER # VISITS AND/OR THROUGH DATE: 03/21/17
--- NOTE | 2017-03-11 16:09 | RS.OPPTDN ---
Subjective Date of Note: 03/11/17 Visit #: 12 Date of Evaluation: 02/08/17 Payer Source: Medicaid Treatment Diagnosis: LBP, LE weakness Current Subjective/complaints:: Patient reports doing better today but continues to have some increased pain and swelling around incision. States he will continue HEP and will return to physician next week for a follow-up appointment. Pain Assessment - Pain Description Pain Location: low back, buttock, and thighs (left LE worse than right) Current Pain Intensity: 3/10 following treatment and exercise. - Treatment Modality: Electrical Stim Unattended Parameters/Method Applied: [id number] 245p.v. with 4 large pads to the bilateral lumbar paraspinals with CP following exercise. Patient Position: Supine - Heat/Cryotherapy Treatment: Cryotherapy ([id number] with Estim ) Interventions - Exercise/Activities/Manual Therapy Exercises/Activities: [id number] Isometric hip flexion, isometric hip add. SLR 2s/ 10reps. Double LE with ball between knees for core strengthening, 2s/5reps. Elliptical machine x4mins. Cable pulleys for scapular retraction 20# 4s/10reps. Leg press 60# 2s/10reps. Assisted stretching of bilateral hamstrings and SKTC. Reviewed HEP and patient given blue theraband for progression of scapular retraction with HEP. Total minutes of Exercise: 25mins Manual Therapy: NA HOME EXERCISE PROGRAM: Pelvic tilt, heel slides, alt hip flexion, isometric hip add and flexion. Yellow theraband hip abd in hook-lying. Red and blue therabands for scap retraction for postural strengthening. - Charges Total Direct Minutes: 25mins Total Treatment Time: 45mins Procedures billed for this date of service:: EX2, CP, Estim Assessment: Patient has progressed well and will continue HEP. He will see physician for a follow-up and may continue therapy at a later date as needed with new orders. Patient Education: Body/Joint mechanics, Home Exercise Program, Home Safety, Activity Modification, Education of Plan of Care Patient demonstrates compliance with HEP?: Yes Short Term Goals Goal #1: Patient independent and compliant with HEP. Goal to be met by: 02/23/17 (100%) Progress towards Goal:: Met Goal #2: Bilateral hip strength 4+/5. Goal to be met by: 02/23/17 (100%) Progress towards Goal:: Met Goal #3: Pt to report pain in low back and LE's <5/10. Goal to be met by: 02/23/17 (100%) Progress towards Goal:: Met Goal #4: Bilateral SLR to 45 degrees. 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 Goal to be met by: 03/21/17 Progress towards goal: Progressing Goal #3: Pt to demonstrate good awareness of back safety and proper body mechanics. Goal to be met by: 03/21/17 (80%) Progress towards goal: Progressing Goal #4: Pt able to perform all ADL's and functional activities with minimal pain. Goal to be met by: 03/21/17 (50%) Plan PLAN OF CARE EXPIRES ON:: 03/21/17 ORDER # VISITS AND/OR THROUGH DATE: 03/21/17 PLAN: Hold (Patient to return to physician for a follow-up. Hold for release with patient to be discharged with HEP if no additional orders received.)
--- NOTE | 2017-04-07 15:15 | RS.QUICKDC ---
Discharge from PT Date of Discharge: 04/07/17 Number of Visits: 12 Reason for Discharge: Patient progressed with treatment and 5 of 8 treatment goals. He returned to physician for follow-up and no additional treatment ordered or appointments scheduled. Please refer to last daily note for specifics of treatment and goals. The patient will continue HEP as instructed. Discharge at this time.
== END 2017-03-23 ==
PROVIDERS: ATTEND Orthopaedic Surgery
DX: M54.5 Low back pain (principal); Z98.890 Other specified postprocedural states

== ENCOUNTER 2017-04-11 07:19 | Outpatient (CLI) ==
--- NOTE | 2017-04-11 08:16 | DI ---
Exam: Three views lumbar spine. Clinical indication: Low back pain post decompression. Comparison is made to the prior study dated 02/15/2017. Findings: There is straightening of the normal lumbar lordosis. T otherwise, there is normal alignment of the lumbosacral spine. The disc spaces are well maintained. There is a interspinous process hardware placed between the L5 and S1 spinous processes. There is n o radiographic evidence of hardware complication. Otherwise, there are no fractures, dislocations o r other significant bony abnormalities. The visualized soft tissues are unremarkable. Impression: 1. Surgically placed hardware at the L5-S1 interspinous position, without radiographic evidence of hardware complication. 2. Straightening of the normal lumbar lordosis.
== END 2017-04-11 07:20 | disposition home or self-care (01) ==
LOC: RAD 07:19
PROVIDERS: ATTEND Orthopaedic Surgery
DX: M54.5 Low back pain (principal); Z98.890 Other specified postprocedural states

== ENCOUNTER 2017-05-04 17:32 | Emergency (ER) ==
[2017-05-04 17:33] VITALS: BMI 33.6
[2017-05-04 17:39] VITALS: BP 123/80; TEMP 99.7
--- NOTE | 2017-05-04 17:51 | ED.PDOC ---
General ED Provider: Dr. XENA GODWIN Chief Complaint: Abscess Stated Complaint: Developing abscesses R axilla Time Seen by Physician: 17:40 Mode of Arrival: Walk-In Information Source: Patient Exam Limitations: No limitations Primary Care Provider: IGNACIO ARRINGTON Nursing and Triage Documentation Reviewed and Agree: Yes Review of Systems - Review Of Systems Constitutional: Reports: No symptoms Skin: Reports: Change in color, Lumps (Redness, swelling R axilla; also furuncle R chest) Neurological: Reports: No symptoms All Other Systems: Reviewed and Negative Past Medical History - Past Medical History Previously Healthy: Yes Endocrine: Reports: None Cardiovascular: Reports: None Respiratory: Reports: None Hematological: Reports: None Gastrointestinal: Reports: None Genitourinary: Reports: None Neuro/Psych: Reports: Bipolar Disorder, Other (add) Musculoskeletal: Reports: None Cancer: Reports: None - Surgical History General Surgical History: Reports: Unknown - Family History Family History: Reports: Unknown - Social History Smoking Status: Never smoker Hx Substance Use: No Alcohol Screening: None Physical Exam - Physical Exam Appearance: Well-appearing Neck: Supple Respiratory: Airway patent, Respirations nonlabored Musculoskeletal: Normal strength, ROM intact Skin: Warm, Dry, Normal color (Except + erythema R axilla - 3 distinct areas; probable develping abscess on one area; also R lower rib cage) Neurological: Sensation intact Critical Care Note - Critical Care Note Total Time (mins): 5 Course - Course Vital Signs: Temp Pulse Resp BP Pulse Ox 05/04/17 17:33 99.7 F H 99 H 20 123/80 95 Departure - Departure Time of Disposition: 17:53 Disposition: HOME SELF-CARE Discharge Problem: Cellulitis of axilla, right, Abscess of axilla, right Instructions: Cellulitis (ED), Abscess (ED) Condition: Good Pt referred to PMD for follow-up: Yes (Follow up with usual clinic or primary care) Additional Instructions: Take antibiotic as prescribed; follow up with the usual clinic or prescriber that you use. You may need a primary care provider for possible surgical consult like the previous time if this does not clear up. You must make an appointment to be seen if this has not cleared up in one week; sooner if worsening. Prescriptions: Cephalexin [Keflex] 500 mg PO Q8HR #30 capsule Allergies/Adverse Reactions: Allergies sulfamethoxazole [From Bactrim] Adverse Reaction (Verified 05/04/17 17:39) trimethoprim [From Bactrim] Adverse Reaction (Verified 05/04/17 17:39) Home Medications: Ambulatory Orders Hydrocodone/Acetaminophen [Vendor 5-325 Tablet] 1 each PO DIRECTED PRN Ibuprofen [Motrin] 600 mg PO Q6H PRN #30 tablet 12/30/16 Cephalexin [Keflex] 500 mg PO Q8HR #30 capsule 05/04/17 Gabapentin 200 mg PO BID 05/04/17 Gabapentin 400 mg PO BEDTIME 05/04/17
== END 2017-05-04 18:03 | disposition home or self-care (01) ==
LOC: ED 17:32
DX: L02.411 Cutaneous abscess of right axilla (principal); L03.111 Cellulitis of right axilla
CPT/HCPCS: 99282